=== PATIENT | female | born 1985 | race Caucasian/White ===

== ENCOUNTER 2016-06-24 18:04 | Emergency (ER) | payer OTHER ==
[~2016-06-24] VITALS: Ht 165.1 cm; Wt 125.0 kg
[~2016-06-24 18:04] MED LIST: MOTRIN IB200 MG PO; NOHOMEMEDS; TESSALON PERLE100 MG PO; ZITHROMAX Z-PA250 MG PO; ZOFRAN ODT4 MG PO
[2016-06-24 18:32] VITALS: BP 127/62
[2016-06-24 18:54] LABS: HEMATOCRIT 45.6 % (36.0-46.0); MCH 31.1 PG (29.0-34.0); MCHC 34.2 G/DL (30.0-36.0); MCV 90.8 FL (83-99); MEAN PLAT.VOLUME 10.5 uM^3 (9.5-12.4); PLATELET COUNT 296 K/uL (156-360); RBC DIS.WIDTH-CV 13.7 % (11.8-14.6); RBC DIS.WIDTH-SD 45.1 % (39-53); RED BLOOD COUNT 5.02 M/uL (3.80-5.20); WHITE BLOOD COUNT 11.7 K/uL (4.1-10.2)
[2016-06-24 19:15] LABS: CHLORIDE 105 mEq/L (99-109); POTASSIUM 3.7 mEq/L (3.7-5.4); SODIUM 140 mEq/L (136-147)
[2016-06-24 19:17] LABS: GLUCOSE 109 mg/dL (70-99)
[2016-06-24 19:18] LABS: ANION GAP 9 MEQ/L (2-14)
[2016-06-24 19:20] LABS: GFR ESTIMATE (CALCULATED) > 59 mL/min/
[2016-06-24 19:21] LABS: UREA NITROGEN (BUN) 12 mg/dL (9-23)
[2016-06-24] MEDS ORDERED: PREDNISONE20 MG PO (19:31)
[2016-06-24] MEDS ORDERED: ZITHROMAX Z-PA250 MG PO (19:31)
[2016-06-24] MEDS ORDERED: TESSALON200 MG PO (19:31)
== END 2016-06-24 19:51 | disposition home or self-care (01) ==
LOC: EME 18:04 → EXP 18:04
DX: J20.9 Acute bronchitis, unspecified (principal); F17.200 Nicotine dependence, unspecified, uncomplicated; Z88.6 Allergy status to analgesic agent; Z88.0 Allergy status to penicillin
CPT/HCPCS: 80048; 85027; 99281; 99284